=== PATIENT | female | born 1945 | race Hispanic/Latino ===

== ENCOUNTER 2018-09-07 10:22 | Emergency (ER) | payer OTHER, MEDICARE ==
--- OUTSIDE RECORDS SUMMARY | 2018-09-07 10:25 | XMS REPORT | Summary of Care ---
:1945 Author Name LOLA AVALOS N.P. Address Unavailable Unavailable , Care Team Providers Name Role Phone NATALEE REECE, EYAD Lott Unavailable Unavailable ZARI REECE [place], TANYA Rojo Unavailable Unavailable Functional Status Name Dates Details Functional status health issues are not documented Status: Name Dates Details Cognitive status health issues are not documented Status: Problems Name Dates Details Menopause (627.2, Z78.0) Status: Active S/P gastric bypass (V45.86, Z98.84) Status: Active Malnutrition (263.9, E46) Status: Active Malabsorption (579.9, K90.9) Status: Active Vitamin B 12 deficiency (266.2, E53.8) Status: Active Vitamin D deficiency (268.9, E55.9) Status: Active Medications Name Dates Details Medications not documented Allergies and Adverse Reactions Name Dates Details Allergy history not documented Status: Procedures Procedure Dates Details Procedures not documented Immunization Name Dates Details Immunizations not documented Social History Name Dates Details Unknown if ever smoked Vital Signs Date Test Result Details No Known Vitals to report Results Date Description Value Details [id number] [[facility]] PTH, INTACT (WITHOUT CALCIUM) Parathyroid Hormone Intact 73.4 pg/ml Range: 18.4-80.1 [id number] [QLH] CBC (INCLUDES DIFF/PLT) WBC 5.9 {K/CMM} Range: 3.7-10.4 RBC 4.45 {M/CMM} Range: 4.20-5.40 Hgb 9.6 g/dl (Below low threshold) Range: 12.0-16.0 Hct 30.9 % (Below low threshold) Range: 36.0-48.0 MCV 69.4 fL (Below low threshold) Range: 80.0-98.0 MCH 21.6 pg (Below low threshold) Range: 27.0-31.0 MCHC 31.1 g/dl (Below low threshold) Range: 32.0-36.0 RDW 16.4 % (Above high threshold) Range: 11.5-14.5 Platelet 312 {K/CMM} Range: 133-450 Mean Platelet Volume 7.8 fL Range: 7.4-10.4 [id number] [QL] Differential Segmented Neutrophils 66.5 % Range: 45.0-75.0 Monocytes 7.6 % Range: 2.0-12.0 Lymphocytes 23.7 % Range: 20.0-40.0 Eosinophils 1.5 % Range: 0.0-4.0 Basophils 0.7 % Range: 0.0-1.0 Segs-Bands # 3.9 {K/CMM} Range: 1.5-8.1 Lymphocytes # 1.4 {K/CMM} Range: 1.0-5.5 Monocytes # 0.4 {K/CMM} Range: 0.0-0.8 Eosinophils # 0.1 {K/CMM} Range: 0.0-0.5 Microcyte 2+ (Abnormal) Range: None Seen [id number] [ON LICENSE OF [facility]] VITAMIN D, 25-HYDROXY, LC/MS/MS Vitamin D, 25-OH, 15.2 ng/ml (Below low Range: 30.0-100.0 Total threshold) Comments: Reference range is based on recommendations in the EndocrineSociety Clinical Practice Guideline (J Clin Endocrinol Drqwa6846;96 :0606-3143) [id number] [ON LICENSE OF [facility]] CMP W/EGFR Sodium Level 142 {mEq/l} Range: 135-145 Potassium Level 4.2 {mEq/l} Range: 3.5-5.1 Chloride Level 107 {mEq/l} Range: 95-109 Carbon Dioxide 26 {mEq/l} Range: 24-32 AGAP 13.2 {mEq/l} Range: 10.0-20.0 Glucose Lvl 87 mg/dl Range: 70-99 Comments: Adult reference range values reflect the clinical guidelinesof the [place] [employer]. Creatinine Lvl 0.90 mg/dl Range: 0.50-1.40 Blood Urea Nitrogen 20 mg/dl Range: 7-22 BUN/Creatinine Ratio 22 Range: 6-25 Total Protein 7.1 g/dl Range: 6.4-8.4 Albumin Lvl 4.1 g/dl Range: 3.5-5.0 Globulin 3.0 g/dl Range: 2.7-4.2 A/G Ratio 1.4 Range: 0.7-1.6 Calcium Level Total 9.0 mg/dl Range: 8.5-10.5 ALT 19 u/l Range: 0-65 AST 18 u/l Range: 0-37 Bili Total 0.7 mg/dl Range: 0.2-1.3 Alk Phos 97 u/l Range: 39-136 eGFR 64 {ML/MIN/1.7} Comments: The eGFR is calculated using the CKD-EPI formula. In most young, healthyindividuals the eGFR will be >90 mL/min/1.73m2. The eGFR declines with age. AneGFR of 60-89 may be normal in some populations, particularly the elderly, forwhom the CKD-EPI formula has not been extensively validated. Use of the eGFR isnot recommended in the following populations:Individuals with unstable creatinine concentratio ns, including patients and those with serious co-morbid conditions.Patients with extremes in muscle mass or diet.The data above are obtained from the National Kidney Disease Education Program(NK DEP) which additionally recommends that when the eGFR is used in patientswith extremes of body mass index for purposes of drug dosing, the eGFR shouldbe multiplied by the estimated BMI. [id number] [QLH] FOLATE, SERUM Folate Level 19.6 ng/ml Range: >=3.0 [id number] [QLH] IRON, TOTAL Iron 21 ug/dL (Below low threshold) Range: 30-160 [id number] [QL] LIPID PANEL Chol 185 mg/dl Range: <=199 Trig 97 mg/dl Range: <=149 HDL Cholesterol 74 mg/dl Range: >=61 CHD Risk 2.50 (Below low threshold) Range: 3.90-5.80 LDL 92 mg/dl Range: <=99 VLDL 19 [id number] [QL] VITAMIN B12 Vitamin B12 Level 176 pg/ml (Below low threshold) Range: 254-1320 [id number] [QLH] TSH, 3RD GENERATION W/REFLEX TO FT4 TSH 0.881 {uIU/ml} Range: 0.360-3.740 [id number] [QLH] HEMOGLOBIN A1c Hemoglobin A1c 5.6 % Range: <=5.6 [id number] [H] Vitamin E Lvl Alpha-Tocopherol 8.1 mg/L (Below low Range: 9.0-29.0 threshold) Gamma-Tocopherol 1.1 mg/L Range: 0.5-4.9 Comments: Reference intervals for alpha and gamma-tocopheroldetermined from National Health and Nutrition ExaminationSurvey, 7448-6074. Individuals with alpha-tocopherol levelsless than 5.0 mg/L are considered vi tamin E deficient.This test was developed and its performance characteristicsdetermined by [facility]. It has not been cleared orapproved by the Food and Drug Administration.Performed At: [facility] [address] [place], [place] [id number] Contreras MD Ph: [phone] [id number] [QLH] VITAMIN B1, WHOLE BLOOD Vitamin B1 Level 93.9 nmol/L Range: 66.5-200.0 Comments: This test was developed and its performance characteristicsdetermined by [facility]. It has not been cleared orapproved by the Food and Drug Administration.Performed At: [facility] [id number] [place], [place] [id number] Contreras MD Ph:[phone] [id number] [H] Vit A Vitamin A Level 54.4 ug/dL Range: 22.0-69.5 Comments: Reference intervals for vitamin A determined from LabCorpinternal studies. Individuals with vitamin A less than 20ug/dL are considered vitamin A deficient and those withserum concentrations less than 10 ug/dL are consideredseverely deficient.This test was developed and its performance characteristicsdetermined by [facility]. It has not been cleared orapproved by the Food and Drug Administration.Performed At: [address] [id number] Contreras MD Ph:[phone] Plan of Care Name Dates Details Planned Observations Planned Goals not documented Instructions Name Dates Details Instructions not documented Encounters Appointment; TANYA HAMEED M.D. On: 02-Aug-2016 8:30 Encounter Diagnosis: Problem not documented Appointment; TANYA HAMEED M.D. On: 04-Jul-2017 9:00 Encounter Diagnosis: Problem not documented Appointment; TANYA HAMEED M.D. On: 12-Jun-2018 10:30 Encounter Diagnosis: Problem not documented
--- OUTSIDE RECORDS SUMMARY | 2018-09-07 10:25 | XMS REPORT | Clinical Summary ---
:1945 Author Organization [facility] Address [address] [place] [address] Care Team Providers Name Role Phone Daniella Astorga MD Primary Care Provider Allergies Active Allergy Reactions Severity Noted Date Comments No Known Drug Allergies Other (See Comments) 06/22/2015 Medications Medication Sig Dispensed Refills Start Date End Date Status fluticasone 2 sprays (100 15.8 mL 0 05/11/2017 Active (FLONASE) 50 mcg total) by mcg/actuation nasal Each Nare spray route daily. clonAZEPAM Take 0.25 mg 0 Active (KlonoPIN) 0.25 MG by mouth 2 disintegrating (two) times a tablet day as needed for seizures. amLODIPine (NORVASC) Take 1 tablet 90 tablet 2 12/19/2017 Active 5 mg tablet (5 mg total) by mouth once daily. triamterene-hydrochl TAKE 1 90 capsule 2 12/19/2017 Active orothiazid (DYAZIDE) CAPSULE BY 37.5-25 mg per MOUTH EVERY capsule MORNING. levothyroxine Take 1 tablet 90 tablet 2 02/04/2018 Active (SYNTHROID, LEVOXYL) (50 mcg 50 mcg tablet total) by mouth once daily. ferrous sulfate 325 Take 1 tablet 30 tablet 3 07/29/2018 Active (65 FE) MG EC tablet (325 mg total) by mouth daily with breakfast. neomycin-polymyxin 0 04/17/2016 Discontinued B-dexameth 8 (MAXITROL) 3.5 mg/g-10,000 unit/g-0.1 % ointment levothyroxine TAKE 1 TABLET 90 tablet 2 11/15/2016 Discontinued (SYNTHROID, LEVOXYL) (50 MCG 8 50 mcg tablet TOTAL) BY MOUTH ONCE DAILY. levothyroxine Take 1 tablet 90 tablet 2 03/31/2017 Discontinued (SYNTHROID, LEVOXYL) (50 mcg 8 50 mcg tablet total) by mouth once daily. triamterene-hydrochl TAKE 1 90 capsule 3 03/31/2017 Discontinued orothiazid (DYAZIDE) CAPSULE BY 8 37.5-25 mg per MOUTH EVERY capsule MORNING. amLODIPine (NORVASC) Take 1 tablet 90 tablet 2 03/31/2017 Discontinued 5 mg tablet (5 mg total) 8 by mouth once daily. levothyroxine Take 1 tablet 90 tablet 2 12/19/2017 Discontinued (SYNTHROID, LEVOXYL) (50 mcg 8 50 mcg tablet total) by mouth once daily. nitrofurantoin, Take 1 14 capsule 0 01/27/2018 macrocrystal-monohyd capsule (100 8 rate, (MACROBID) 100 mg total) by MG capsule mouth 2 (two) times a day for 7 days. ferrous sulfate 325 Take 1 tablet 30 tablet 3 01/27/2018 Discontinued (65 FE) MG EC tablet (325 mg 9 total) by mouth daily with breakfast. 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 Non-toxic multinodular goiter 06/22/2015 Thyroid nodule 06/22/2015 Bariatric operative procedure 11/27/2011 Blood pressure elevated without history of HTN 08/29/2010 Hypothyroidism 08/26/2010 Encounters Date Type Specialty Care Team Description 08/02/2018 Hospital Encounter Radiology Daniella Astorga Screening for cher Molina MD cancer 07/29/2018 Orders Only Internal Medicine Daniella Astorga MD 07/27/2018 Office Visit Internal Medicine Daniella Astorga Essential hypertension (Primary Dx); MD Tracy Hypothyroidism, unspecified type; Painful tongue; Screening for breast cancer 02/04/2018 Refill Internal Medicine Sherita Lopez MA 01/27/2018 Orders Only Internal Medicine Daniella Astorga MD 01/27/2018 Orders Only Internal Medicine Daniella Astorga MD 01/26/2018 Office Visit Internal Medicine Daniella Astorga Routine general medical examination at a health care facility (Primary Dx); MD Tracy Essential hypertension; Hypothyroidism, unspecified type; Screening for osteoporosis; Screen for colon cancer; Screening for breast cancer; Left bundle branch block 01/21/2018 Telephone Internal Medicine Xiomy Osuna MA 12/19/2017 Refill Internal Medicine Sherita Lopez MA 09/22/2017 Office Visit Internal Daniella Ortega Essential hypertension (Primary Dx); MD Tracy Hypothyroidism, unspecified type; Need for vaccination with 13-polyvalent pneumococcal conjugate vaccine; Gallstones; Screen for colon cancer after 09/06/2017 Immunizations Name Dates Previously Given Next Due Influenza Split 03/03/2013 Pneumococcal Conjugate 13-Valent 09/22/2017 Pneumococcal Polysaccharide 07/15/2012 Family History Medical History Relation Name Comments Old age Father Relation Name Status Comments Father Mother Social History Tobacco Use Types Packs/Day Years Used Date Never Smoker Smokeless Tobacco: Never Used Tobacco Cessation: Counseling Given: No Alcohol Use Drinks/Week oz/Week Comments No Sex Assigned at Date Recorded Not on file Job Start Date Occupation Industry Not on file Not on file Not on file Travel History Travel Start Travel End No recent travel history available. Last Filed Vital Signs Vital Sign Reading Time Taken Blood Pressure 129/66 07/27/2018 10:27 AM CDT Pulse 71 07/27/2018 10:27 AM CDT Temperature - - Respiratory Rate - - Oxygen Saturation - - Inhaled Oxygen Concentration - - Weight 50.8 kg (112 lb) 07/27/2018 10:27 AM CDT Height 157.5 cm (5' 2") 07/27/2018 10:27 AM CDT Body Mass Index 20.49 07/27/2018 10:27 AM CDT Plan of Treatment Date Type Specialty Care Team Description 02/01/2019 Office Visit Internal Medicine Daniella Astorga MD [address] [place] [address] [phone] Health Maintenance Due Date Last Done Comments SHINGLES VACCINES (#1) 1994 INFLUENZA VACCINE 12/12/2018 02/26/2018, 02/21/2017, 03/03/2013 BREAST CANCER SCREENING 08/02/2020 08/02/2018, 11/27/2011 COLON CANCER SCREENING 05/22/2027 05/22/2017 PNEUMOCOCCAL POLYSACCHARIDE VACCINE Completed 07/15/2012 AGE 65 AND OVER 65+ PNEUMOCOCCAL VACCINE Completed 09/22/2017, 07/15/2012 Procedures Procedure Name Priority Date/Time Associated Diagnosis Comments MAMMO BREAST SCREEN Routine 08/02/2018 2:01 Screening for breast Results for this TOMOSYNTHESIS PM CDT cancer procedure are in BILATERAL the results section. T4, FREE Routine 07/27/2018 11:15 Hypothyroidism, Results for this AM CDT unspecified type procedure are in the results section. THYROID STIMULATING Routine 07/27/2018 11:15 Hypothyroidism, Results for this HORMONE AM CDT unspecified type procedure are in the results section. COMPREHENSIVE Routine 07/27/2018 11:15 Essential Results for this METABOLIC PANEL AM CDT hypertension procedure are in the results section. CBC WITH PLATELET AND Routine 07/27/2018 11:15 Essential Results for this DIFFERENTIAL AM CDT hypertension procedure are in the results section. URINALYSIS, AUTOMATED Routine 01/26/2018 10:39 Routine general Results for this WITH MICROSCOPY AM CDT medical examination procedure are in at a [facility] care the results facility section. CBC WITH PLATELET AND Routine 01/26/2018 10:39 Routine general Results for this DIFFERENTIAL AM CDT medical examination procedure are in at a [facility] care the results facility section. THYROID STIMULATING Routine 01/26/2018 10:39 Hypothyroidism, Results for this HORMONE AM CDT unspecified type procedure are in the results section. T4, FREE Routine 01/26/2018 10:39 Hypothyroidism, Results for this AM CDT unspecified type procedure are in the results section. COMPREHENSIVE Routine 01/26/2018 10:39 Essential Results for this METABOLIC PANEL AM CDT hypertension procedure are in the results section. ECG 12-LEAD Routine 01/26/2018 8:52 Routine general Results for this AM CDT medical examination procedure are in at a [facility] care the results facility section. after 09/06/2017 Results Mammo Breast Screen Tomosynthesis Bilateral (08/02/2018 2:01 PM CDT) Narrative Performed At PROCEDURE: [facility] MAMMO BREAST SCREEN TOMOSYNTHESIS BILATERAL Computer-assisted detection was utilized for the interpretation of this exam. COMPARISON: None. TECHNIQUE: Bilateral digital screening mammogram with tomosynthesis was performedand interpreted using computer-assisted detection. CLINICAL HISTORY: The patient has no current palpable breast complaints. FINDINGS: Bilateral mammogram demonstrates the breast parenchyma to beheterogeneously dense, which could obscure the detection of small masses. There are vascular arterial calcifications as well as scattered benign-appearing calcifications bilaterally LEFT:No specific features of malignancy. RIGHT: No specific features of malignancy. IMPRESSION: BI-RADS Category 2: Benign. Recommend comparison with physical exam and annual screening mammography. This facility is accredited by The [place] [employer] for Mammography. A negative x-ray report should not delay biopsy if a dominant or clinically suspicious mass is present. Not all cancers are identified by x-ray. [id number] Performing Organization Address City/State/Zipcode Phone Number [facility] [address] [place] [address] CBC with platelet and differential (07/27/2018 11:15 AM CDT)Only the most recent of2 resultswithin the time period is included. WBC 6.0 3.8 - 10.8 [facility] Thousand/uL [place] RBC 4.67 3.80 - 5.10 [facility] Million/uL [place] HGB 9.4 (L) 11.7 - 15.5 g/dL [facility] [place] HCT 31.6 (L) 35.0 - 45.0 % [facility] [place] MCV 67.7 (L) 80.0 - 100.0 fL [facility] [place] MCH 20.1 (L) 27.0 - 33.0 pg [facility] [place] MCHC 29.7 (L) 32.0 - 36.0 g/dL [facility] [place] RDW 15.1 (H) 11.0 - 15.0 % [facility] [place] Platelet count 371 140 - 400 [facility] Thousand/uL [place] MPV 10.0 7.5 - 12.5 fL [facility] [place] Neutrophils, absolute 3,978 1,500 - 7,800 [facility] cells/uL [place] Lymphocytes, absolute 1,482 850 - 3,900 [facility] cells/uL [place] Monocytes, absolute 420 200 - 950 [facility] cells/uL [place] Eosinophils, absolute 78 15 - 500 cells/uL [facility] [place] Basophils, absolute 42 0 - 200 cells/uL [facility] [place] Neutrophils 66.3 % [facility] [place] Lymphocytes 24.7 % [facility] [place] Monocytes 7.0 % [facility] [place] Eosinophils 1.3 % [facility] [place] Basophils + RC 0.7 % [facility] [place] Nucleated RBC [facility] Comment: [place] Review of peripheral smear confirms automated results. Specimen Blood Narrative Performed At FASTING:YES [facility] FASTING: YES Resulting Agency Comment Performing Organization Information: Site ID: [id number] Name: [facility] Address: [address] [place] [phone] Director: Arleen Paez Performing Organization Address City/[facility] [place] [address] Thyroid stimulating hormone (07/27/2018 11:15 AM CDT)Only the most recent of2 resultswithin the time period is included. TSH 1.35 0.40 - 4.50 mIU/L [facility] [place] Specimen Blood Narrative Performed At FASTING:YES [facility] FASTING: YES Resulting Agency Comment Performing Organization Information: Site ID: [id number] Name: [facility] Address: [address] [place] [phone] Director: Arleen Paez Performing Organization Address [facility] [place] [address] T4, free (07/27/2018 11:15 AM CDT)Only the most recent of2 resultswithin the time period is included. T4, free 1.5 0.8 - 1.8 ng/dL [facility] [place] Specimen Blood Narrative Performed At FASTING:YES [facility] FASTING: YES Resulting Agency Comment Performing Organization Information: Site ID: [id number] Name: [facility] Address: [address] [place] [phone] Director: Arleen Paez Performing Organization Address [facility] Phone Number [facility] [address] [address] Comprehensive metabolic panel (07/27/2018 11:15 AM CDT)Only the most recent of2 resultswithin the time period is included. Glucose 96 65 - 99 mg/dL [facility] Comment: [place] Fasting reference interval BUN, whole blood 20 7 - 25 mg/dL [facility] [place] Creatinine 0.99 (H) 0.60 - 0.93 [facility] Comment: mg/dL [place] For patients >49 years of age, the reference limit for Creatinine is approximately 13% higher for people identified as -[place]. EGFR Non-Afr. [place] 56 (L) > OR=60 [facility] mL/min/1.73m2 [place] EGFR 65 > OR=60 [facility] mL/min/1.73m2 [place] BUN/creatinine ratio 20 6 - 22 (calc) [facility] [place] Sodium 138 135 - 146 mmol/L [facility] [place] Potassium 4.1 3.5 - 5.3 mmol/L [facility] [place] Chloride 104 98 - 110 mmol/L [facility] [place] CO2 25 20 - 32 mmol/L [facility] [place] Calcium 9.5 8.6 - 10.4 mg/dL [facility] [place] Protein 7.5 6.1 - 8.1 g/dL [facility] [place] Albumin, S 4.4 3.6 - 5.1 g/dL [facility] [place] Globulin, total 3.1 1.9 - 3.7 g/dL [facility] (calc) [place] Albumin/globulin ratio 1.4 1.0 - 2.5 (calc) [facility] [place] Total bilirubin 0.6 0.2 - 1.2 mg/dL [facility] [place] Alkaline phosphatase 99 33 - 130 U/L [facility] [place] AST 21 10 - 35 U/L [facility] [place] ALT 10 6 - 29 U/L [facility] [place] Specimen Blood Narrative Performed At FASTING:YES [facility] FASTING: YES Resulting Agency Comment Performing Organization Information: Site ID: [id number] Name: [facility] Address: [address] [place] [phone] Director: Arleen Paez Performing Organization Address City/State/Zipcode Phone Number [facility] [address] [address] Urinalysis, automated with microscopy (01/26/2018 10:39 AM CDT) Color, UA YELLOW YELLOW [facility] [place] Appearance CLEAR CLEAR [facility] [place] Specific gravity, urine 1.019 1.001 - 1.035 [facility] [place] pH, urine 5.5 5.0 - 8.0 [facility] [place] Glucose, urine NEGATIVE NEGATIVE [facility] [place] Bilirubin, UA NEGATIVE NEGATIVE [facility] [place] Ketones, UA NEGATIVE NEGATIVE [facility] [place] Occult blood, urine TRACE (A) NEGATIVE [facility] [place] Protein, UA NEGATIVE NEGATIVE [facility] [place] Nitrite, UA POSITIVE (A) NEGATIVE [facility] [place] Leukocyte esterase, UA 1+ (A) NEGATIVE [facility] [place] WBC, UA 0-5 < OR=5 /HPF [facility] [place] RBC, UA NONE SEEN < OR=2 /HPF [facility] [place] Squamous epithelial cells, UA NONE SEEN < OR=5 /HPF [facility] [place] Bacteria, UA MODERATE (A) NONE SEEN /HPF [facility] [place] Hyaline casts, UA NONE SEEN NONE SEEN /LPF [facility] [place] Specimen Urine Narrative Performed At FASTING:YES [facility] FASTING: YES Resulting Agency Comment Performing Organization Information: Site ID: [id number] Name: [facility] Address: [address] [place] [phone] Director: Arleen Paez Performing Organization Address City/[facility] Phone Number [facility] [place] [address] [place] [phone] ECG 12 lead (01/26/2018 8:52 AM CDT) Ventricular rate 59 [facility] Atrial rate 59 [facility] SC interval 180 [facility] QRSD interval 150 [facility] QT interval 484 [facility] QTC interval 479 [facility] P axis 1 67 [facility] QRS axis 1 47 [facility] T wave axis 83 [facility] EKG impression Sinus bradycardia-Left bundle branch [facility] block-Abnormal ECG-No previous ECGs available- Performing Organization Address City/State/[facility] Phone Number [facility] [address] [place] [address] after 09/06/2017 Insurance Payer Benefit Plan / Group Subscriber ID Type Phone Address MEDICARE MEDICARE PART A AND B xxxxxxxxxxx Medicare [place], [place] AARP AARP SUPPLEMENT xxxxxxxxx Commercial ) [place] [address] Advance Directives Patient has advance care planning documents on file. For more information, please contact:Lefty Pastor[address] [place] [address]
--- NOTE | 2018-09-07 11:13 | RAD REPORT ---
EXAM DESCRIPTION: CT - Head Brain Wo Cont - 09/07/2018 11:00 am CLINICAL HISTORY: Head injury status post trauma COMPARISON: None. TECHNIQUE: Computed axial tomography of the head was obtained. IV contrast was not requested. All CT scans are performed using dose optimization technique as appropriate and may include automated exposure control or mA/KV adjustment according to patient size. FINDINGS: Left frontal scalp swelling without an underlying skull fracture seen An intracranial bleed is not seen . The ventricles are normal in caliber. No extra-axial fluid collection is noted. Fluid within the sinuses/ mastoids is not seen. IMPRESSION: No acute intracranial abnormality is seen. If patient's symptoms persist MRI of the bra in would be recommended.
--- NOTE | 2018-09-07 11:43 | RAD REPORT ---
EXAM DESCRIPTION: RAD - Knee Right 3 View - 09/07/2018 11:14 am CLINICAL HISTORY: Right knee pain status post injury FINDINGS: No fracture or dislocation is seen.
--- NOTE | 2018-09-07 11:46 | RAD REPORT ---
EXAM DESCRIPTION: RAD - Foot Right 3 View - 09/07/2018 11:11 am CLINICAL HISTORY: Right foot pain status post injury FINDINGS: No fracture or dislocation is seen . Osteoporosis
--- NOTE | 2018-09-07 11:54 | ER ---
Nurse's Notes [facility] Name: Genny Jeter Age: 73 yrs Sex: Female : 1945 Arrival Date: 09/07/2018 Time: 10:24 Bed 20 Private MD: Diagnosis: Fall on same level from slipping, tripping and stumbling;Superficial injury of head;Pain in left knee;Pain in right knee;Pain in right foot Presentation: 09/07 10:43 Presenting complaint: Patient states: tripped over her slippers this morning, fell iw forward, hitting both knees, both hands, hit face on concrete, small laceration noted to left eyebrow area, no bleeding, denies LOC, denies using blood thinners. Care prior to arrival: None. 10:43 Acuity: BEATRIZ 4 iw 10:43 Method Of Arrival: Ambulatory iw 10:44 Transition of care: patient was not received from another setting of care. Onset of iw symptoms was September 07, 2018. Risk Assessment: Do you want to hurt yourself or someone else? Patient reports no desire to harm self or others. Initial Sepsis Screen: Does the patient meet any 2 criteria? No. Patient's initial sepsis screen is negative. Does the patient have a suspected source of infection? No. Patient's initial sepsis screen is negative. Historical: - Allergies: 10:46 No Known Allergies; iw - PMHx: 10:46 Anxiety; Hypertension; Hypothyroidism; iw - PSHx: 10:46 Tonsillectomy; lap band; right foot; Hysterectomy; iw - Immunization history:: Adult Immunizations not up to date. - Social history:: Smoking status: Patient/guardian denies using tobacco. - Ebola Screening: : Patient negative for fever greater than or equal to 101.5 degrees Fahrenheit, and additional compatible Ebola Virus Disease symptoms Patient denies exposure to infectious person Patient denies travel to an Ebola-affected area in the 21 days before illness onset No symptoms or risks identified at this time. Screenin:00 Abuse screen: Denies threats or abuse. Nutritional screening: No deficits noted. em Tuberculosis screening: No symptoms or risk factors identified. Fall Risk None identified. Assessment: 11:00 General: Appears in no apparent distress. distressed, Behavior is calm, cooperative. em Pain: Complains of pain in outer aspect of left eyebrow, right knee and left knee Pain currently is 2 out of 10 on a pain scale. Neuro: Level of Consciousness is awake, alert, obeys commands, Oriented to person, place, time, situation, Denies weakness dizziness, headache. Cardiovascular: Capillary refill < 3 seconds Patient's skin is warm and dry. Respiratory: Airway is patent Respiratory effort is even, unlabored, Respiratory pattern is regular, symmetrical. GI: Patient currently denies nausea, vomiting. Derm: Skin is intact, is healthy with good turgor, Skin is pink, warm \T\ dry. Musculoskeletal: Capillary refill < 3 seconds, Range of motion: intact in all extremities. 12:04 Reassessment: Patient appears in no apparent distress at this time. Patient and/or em family updated on plan of care and expected duration. Pain level reassessed. Patient is alert, oriented x 3, equal unlabored respirations, skin warm/dry/pink. Vital Signs: 10:44 BP 133 / 56; Pulse 68; Resp 16 S; Temp 98.3; Pulse Ox 100% on R/A; Weight 53.07 kg; iw Height 5 ft. 2 in. (157.48 cm); Pain 2/10; 11:48 BP 130 / 54; Pulse 62; Resp 18; Pulse Ox 99% on R/A; em 10:44 Body Mass Index 21.40 (53.07 kg, 157.48 cm) iw ED Course: 10:24 Patient arrived in ED. rg4 10:37 Sw[facility] David [facility]C [facility] kb 10:37 Ambrose Ellis MD is Attending Physician. kb 10:44 Triage completed. iw 10:44 Arm band placed on. iw 10:52 Quintin Umana LVN is Primary Nurse. em 10:59 CT Head Brain wo Cont In Process Unspecified. EDMS 10:59 CT completed. Patient tolerated procedure well. Patient moved to radiology. mw3 11:00 Patient has correct armband on for positive identification. Bed in low position. Call em light in reach. Side rails up X2. Adult w/ patient. Pulse ox on. NIBP on. 11:08 Knee Right 3 View XRAY In Process Unspecified. EDMS 11:08 Foot Right 3 View XRAY In Process Unspecified. EDMS 12:03 No provider procedures requiring assistance completed. Patient did not have IV access em during this emergency room visit. Administered Medications: 12:00 Drug: [place] 5 mg-325 mg 1 tabs Route: PO; em 12:04 Follow up: Response: Medication administered at discharge. em Outcome: 11:53 Discharge ordered by . alexei 12:03 Discharged to home ambulatory, with family. em 12:03 Condition: good 12:03 Discharge instructions given to patient, family, Instructed on discharge instructions, follow up and referral plans. Demonstrated understanding of instructions, follow-up care. 12:05 Patient left the ED. em Signatures: Dispatcher [employer] EDMS Sweta David, BUILDING CONSTRUCTION ESTIMATOR-C BUILDING CONSTRUCTION ESTIMATOR-Ckb Quintin Umana, AUTO INSPECTION SPECIALIST AUTO INSPECTION SPECIALIST em Luzma Vaughan, Dalia Colin RN rg4 Davida Elizalde mw3
--- NOTE | 2018-09-07 11:54 | EDPHYS ---
Physician Documentation [facility] Name: Genny Jeter Age: 73 yrs Sex: Female : 1945 Arrival Date: 09/07/2018 Time: 10:24 Bed 20 Private MD: ED Physician Ambrose Ellis HPI: 09/07 12:10 This 73 yrs old Female presents to ER via Ambulatory with complaints of Fall kb Injury. 12:10 Details of fall: The patient fell from an upright position, while walking. Onset: The kb symptoms/episode began/occurred this morning. Associated injuries: The patient sustained injury to the head, hematoma, right knee and left knee and left hand and right first toe, contusion, ecchymosis. Severity of symptoms: At their worst the symptoms were mild, in the emergency department the symptoms are unchanged. The patient has not experienced similar symptoms in the past. The patient has not recently seen a physician. Pt reports she tripped over her shoe this morning trying to sparks out of the door for a hair appt. Went to hair appt but wanted to come get checked out. hematoma to left eyebrow, pain to left hand, bilateral knees and right great toe. Historical: - Allergies: 10:46 No Known Allergies; iw - PMHx: 10:46 Anxiety; Hypertension; Hypothyroidism; iw - PSHx: 10:46 Tonsillectomy; lap band; right foot; Hysterectomy; iw - Immunization history:: Adult Immunizations not up to date. - Social history:: Smoking status: Patient/guardian denies using tobacco. - Ebola Screening: : Patient negative for fever greater than or equal to 101.5 degrees Fahrenheit, and additional compatible Ebola Virus Disease symptoms Patient denies exposure to infectious person Patient denies travel to an Ebola-affected area in the 21 days before illness onset No symptoms or risks identified at this time. ROS: 12:08 Constitutional: Negative for fever, chills, and weight loss, ENT: Negative for injury, kb pain, and discharge, Cardiovascular: Negative for chest pain, palpitations, and edema, Respiratory: Negative for shortness of breath, cough, wheezing, and pleuritic chest pain, Abdomen/GI: Negative for abdominal pain, nausea, vomiting, diarrhea, and constipation, Neuro: Negative for headache, weakness, numbness, tingling, and seizure. 12:08 MS/extremity: Positive for injury or acute deformity, contusion, ecchymosis, pain, of the right knee and left knee and left hand and right first toe. 12:08 Skin: Positive for hematoma, of the outer aspect of left eyebrow. Exam: 12:00 Constitutional: This is a well developed, well nourished patient who is awake, alert, kb and in no acute distress. Chest/axilla: Normal chest wall appearance and motion. Nontender with no deformity. No lesions are appreciated. Cardiovascular: Regular rate and rhythm with a normal S1 and S2. No gallops, murmurs, or rubs. Normal PMI, no JVD. No pulse deficits. Respiratory: Lungs have equal breath sounds bilaterally, clear to auscultation and percussion. No rales, rhonchi or wheezes noted. No increased work of breathing, no retractions or nasal flaring. Abdomen/GI: Soft, non-tender, with normal bowel sounds. No distension or tympany. No guarding or rebound. No evidence of tenderness throughout. Skin: Warm, dry with normal turgor. Normal color with no rashes, no lesions, and no evidence of cellulitis. Neuro: Awake and alert, GCS 15, oriented to person, place, time, and situation. Cranial nerves II-XII grossly intact. Motor strength 5/5 in all extremities. Sensory grossly intact. Cerebellar exam normal. Normal gait. 12:00 Head/face: Noted is no obvious of injury or deformity except hematoma, that is moderate, of the outer aspect of left eyebrow. 12:00 Musculoskeletal/extremity: Extremities: grossly normal except: noted in the left hand and right first toe and right knee and left knee: contusion, pain, ROM: intact in all extremities, Circulation is intact in all extremities. Sensation intact. Weight bearing: able to fully bear weight. Vital Signs: 10:44 BP 133 / 56; Pulse 68; Resp 16 S; Temp 98.3; Pulse Ox 100% on R/A; Weight 53.07 kg; iw Height 5 ft. 2 in. (157.48 cm); Pain 2/10; 11:48 BP 130 / 54; Pulse 62; Resp 18; Pulse Ox 99% on R/A; em 10:44 Body Mass Index 21.40 (53.07 kg, 157.48 cm) MDM: 10:37 Patient medically screened. kb 11:52 Data reviewed: vital signs, nurses notes. Data interpreted: Pulse oximetry: on room air kb is 100 %. Interpretation: normal. Counseling: I had a detailed discussion with the patient and/or guardian regarding: the historical points, exam findings, and any diagnostic results supporting the discharge/admit diagnosis, radiology results, the need for outpatient follow up, a family practitioner, to return to the emergency department if symptoms worsen or persist or if there are any questions or concerns that arise at home. 09/07 10:45 Order name: Knee Right 3 View XRAY; Complete Time: 11:43 kb 09/07 10:45 Order name: Foot Right 3 View XRAY; Complete Time: 11:52 kb 09/07 10:45 Order name: CT Head Brain wo Cont; Complete Time: 11:20 kb Administered Medications: 12:00 Drug: [place] 5 mg-325 mg 1 tabs Route: PO; em 12:04 Follow up: Response: Medication administered at discharge. em Disposition: 13:06 Co-signature as Attending Physician, Ambrose Ellis MD. rn Disposition: 09/07/18 11:53 Discharged to Home. Impression: Fall on same level from slipping, tripping and stumbling, Superficial injury of head, Pain in left knee, Pain in right knee, Pain in right foot. - Condition is Stable. - Discharge Instructions: Musculoskeletal Pain, Head Injury, Adult, [id number], Knee Pain, [id number]. - Medication Reconciliation Form, Thank You Letter, Antibiotic Education, Prescription Opioid Use form. - Follow up: Emergency Department; When: As needed; Reason: Worsening of condition. Follow up: Private Physician; When: 2 - 3 days; Reason: Recheck today's complaints, Continuance of care, Re-evaluation by your physician. Signatures: Dispatcher [employer] Sweta Dawson, ZO NUTRITIONAL YEAST SUPERVISOR-Quintin Navarro, ALEXIS PEREZN Luzma Jackson, RN RN Ambrose Hu MD MD turntable man: (The following items were deleted from the chart) 12:05 11:53 09/07/2018 11:53 Discharged to Home. Impression: Fall on same level from em slipping, tripping and stumbling; Superficial injury of head; Pain in left knee; Pain in right knee; Pain in right foot. Condition is Stable. Forms are Medication Reconciliation Form, Thank You Letter, Antibiotic Education, Prescription Opioid Use. Follow up: Emergency Department; When: As needed; Reason: Worsening of condition. Follow up: Private Physician; When: 2 - 3 days; Reason: Recheck today's complaints, Continuance of care, Re-evaluation by your physician. kb
[2018-09-07] MEDS ORDERED: HYDROCODONE/APAP 5/325 MG TAB ONE (12:09)
== END 2018-09-07 12:05 | disposition home or self-care (01) ==
LOC: ER 10:22
DX: S00.90XA Unspecified superficial injury of unspecified part of head, initial encounter (principal); W01.0XXA Fall on same level from slipping, tripping and stumbling without subsequent striking against object, initial encounter; M25.562 Pain in left knee; M25.561 Pain in right knee; F41.9 Anxiety disorder, unspecified; I10 Essential (primary) hypertension; E03.9 Hypothyroidism, unspecified
CPT/HCPCS: 70450; 99283